=== PATIENT | female | born 1930 | race Caucasian/White ===

== ENCOUNTER 2018-05-20 12:29 | Inpatient (IN) ==
[2018-05-20 13:12] LABS: Basophils # 0.1 K/mm3 (0-0.2); Basophils % 0.5 % (0.1-2.0); Eosinophils # 0.2 K/mm3 (0.0-0.4); Eosinophils % 1.8 % (0.1-12.0); Hematocrit 43.5 % (37.0-47.0); Hemoglobin 14.7 g/dL (12.2-16.2); Lymphocytes # 2.1 K/mm3 (0.7-4.5); Lymphocytes % 17.4 % (10-50); Mean Corpuscular HGB Conc 33.8 g/dL (31.8-35.4); Mean Corpuscular Hemoglobin 31.1 pg (27.0-31.2); Mean Corpuscular Volume 91.9 fl (81-99); Mean Platelet Volume 9.9 fl (7.4-10.4); Monocytes # 0.8 K/mm3 (0.1-1.0); Monocytes % 6.5 % (1.7-9.3); Neutrophils # 8.7 K/mm3 (1.8-7.8); Neutrophils % 73.7 % (37.0-80.0); Platelet Count 224 K/mm3 (142-424); Red Blood Count 4.73 M/mm3 (4.20-5.40); Red Cell Distribution Width 21.2 % (11.5-17.5); White Blood Count 11.8 K/mm3 (4.8-10.8)
[2018-05-20 13:33] LABS: Albumin Level 3.9 gm/dL (3.4-5.0); Anion Gap 23.6 mEq/L (5-15); Bilirubin,Total 1.4 mg/dL (0.2-1.0); Calcium 9.3 mg/dL (8.5-10.1); Digoxin 0.6 ng/mL (1.15-2.56); Globulin 3.8 gm/dl (1.3-3.2); Total Protein,Serum 7.7 gm/dL (6.4-8.2)
[2018-05-20 13:34] LABS: Microscopic, Urine URINE MICROSCOPIC (MICROSCOPIC)
[2018-05-20 13:36] LABS: Potassium 2.6 mmoL/L (3.5-5.1)
[2018-05-20 13:42] LABS: Appearance,Urine CLEAR (Clear); Bilirubin,Urine Negative (Negative); Blood, Urine 3+ (Negative); Color,Urine YELLOW (Yellow); Glucose,Urine (UA) Negative (Negative); Ketones,Urine Negative (Negative); Leukocyte Esterase,Urine Negative (Negative); Protein,Urine TRACE (Negative); Specific Gravity, Urine 1.015 (1.005-1.030); Urobilinogen,Urine 0.2 EU/dl (0.2)
[2018-05-20 13:53] LABS: Bacteria,Urine 1+ /lpf
--- NOTE | 2018-05-20 16:17 | Emergency Department Note ---
ED Disposition Clinical Impression: Dehydration, Urinary tract infection Disposition: Admitted as Observation Condition on Discharge: Fair Time of Disposition: 16:23 - Critical Care Critical Care Time: No Attestation: On 05/20/18, the high probability of a clinically significant, sudden or life threatening deterioration of the following system(s) required my full and direct attention, intervention and personal management. The time I documented below is in addition to time spent performing reported procedures but includes the following listed in this critical care notation. Medical Decision Making - Medical Records Medical records reviewed: Yes: I reviewed the patient's medical records. - Ha Inquiry Pt receiving controlled substance: No Ha was queried for this patient: No Vital Signs: 05/20/18 12:30 05/20/18 13:31 05/20/18 15:15 Temperature 97.5 F L Temperature Source Oral Pulse Rate Pulse Rate [Left Radial] 48 L 63 61 Respiratory Rate 16 20 18 Blood Pressure Blood Pressure [Right Arm] 123/75 110/64 95/51 L Blood Pressure Mean [Right Arm] 91 79 65 Blood Pressure Source Blood Pressure Source [Right Arm] Automatic Cuff Automatic Cuff Automatic Cuff Blood Pressure Position Blood Pressure Position [Right Arm] Sitting Sitting Supine 02 Sat by Pulse Oximetry 96 93 L 96 Oxygen Delivery Method Room Air Room Air Room Air 05/20/18 16:53 05/20/18 17:11 Temperature 98 F Temperature Source Oral Pulse Rate 58 L Pulse Rate [Left Radial] 56 L Respiratory Rate 18 18 Blood Pressure 125/64 Blood Pressure [Right Arm] 116/56 L Blood Pressure Mean [Right Arm] 76 Blood Pressure Source Automatic Cuff Blood Pressure Source [Right Arm] Automatic Cuff Blood Pressure Position Sitting Blood Pressure Position [Right Arm] Supine 02 Sat by Pulse Oximetry 98 Oxygen Delivery Method Room Air Room Air - Lab Data Lab Results 05/20/18 12:55: WBC 11.8 H, RBC 4.73, Hgb 14.7, Hct 43.5, MCV 91.9, MCH 31.1, M CHC 33.8, RDW 21.2 H, Plt Count 224, MPV 9.9, Neut % (Auto) 73.7, Lymph % (Auto) 17.4, [place] % (Auto) 6.5, Eos % (Auto) 1.8, Baso % (Auto) 0.5, Neut # (Auto) 8.7 H, Lymph # (Auto) 2.1, [place] # (Auto) 0.8, Eos # (Auto) 0.2, Baso # (Auto) 0.1 05/20/18 12:55: Sodium 143, Potassium 2.6 L*, Chloride 107, Carbon Dioxide 15 L, Anion Gap 23.6 H, BUN 85 H, Creatinine 2.47 H, Estimated Creat Clear 22, Estimated GFR 19 L*, Est GFR ( Amer) 22 L, Glucose 108 H, Calcium 9.3, Total Bilirubin 1.4 H, AST 31, ALT 37, Alkaline Phosphatase 99, Total Protein 7.7, Albumin 3.9, Globulin 3.8 H, Albumin/Globulin Ratio 1.0 L, Digoxin 0.60 L 05/20/18 12:55: Lactate 1.5 05/20/18 12:55: Troponin I 0.11 H 05/20/18 13:20: Urine Color Yellow, Urine Appearance Clear, Urine pH 6.0, Ur Specific [place] 1.015, Urine Protein Trace, Urine Glucose (UA) Negative, Urine Ketones Negative, Urine Blood 3+, Urine Nitrate Negative, Urine Bilirubin Negative, Urine Urobilinogen 0.2, Ur Leukocyte Esterase Negative, Urine RBC 10- 20, Urine WBC 3-5, Ur Squamous Epith Cells 3-5, Urine Bacteria 1+ 05/20/18 16:07: Troponin I 0.12 H Result diagrams: 05/21/18 06:40 05/23/18 06:40 Orders (Tests/Meds): ED MEDICATIONS Discontinued Medications Generic Name Dose Route Start Last Admin Trade Name Freq PRN Reason Stop Dose Admin Acetaminophen 650 mg 05/20/18 16:59 Acetaminophen 325mg Tab PO 06/19/18 16:58 Q4HP PRN As Needed for Fever or Pain Atenolol 25 mg 05/21/18 09:00 05/22/18 08:00 Tenormin 25mg Tablet PO 06/20/18 08:59 25 mg DAILY BARBARA Administration Atenolol 50 mg 05/22/18 09:00 05/22/18 08:50 Tenormin 25mg Tablet PO 06/21/18 08:59 25 mg DAILY BARBARA Administration Atenolol 50 mg 05/23/18 09:00 05/23/18 08:25 Tenormin 50mg Tablet PO 06/22/18 08:59 50 mg DAILY BARBARA Administration Digoxin 125 mcg 05/21/18 09:00 Digoxin 0.125mg Tablet PO 06/20/18 08:59 DAILY BARBARA Digoxin 125 mcg 05/22/18 10:45 05/23/18 08:25 Digoxin 0.125mg Tablet PO 06/21/18 10:44 125 mcg DAILY BARBARA Administration Sodium Chloride 1,000 mls @ 500 mls/hr 05/20/18 15:15 05/20/18 15:38 Sod Chlor 0.9% 1000ml Bag IV 05/20/18 17:14 500 mls/hr .Q2H BARBARA Administration Potassium Chloride/Water 100 mls @ 50 mls/hr 05/20/18 15:30 05/20/18 15:38 Potassium Chloride 20meq/100ml Ivpb IV 05/20/18 19:29 50 mls/hr Q2H BARBARA Administration Ceftriaxone Sodium 1 gm/ 50 mls @ 100 mls/hr 05/20/18 15:30 05/20/18 16:41 Sodium Chloride IV 06/03/18 15:29 100 mls/hr Q24H BARBARA Administration Protocol Ceftriaxone Sodium 1 gm/ 50 mls @ 100 mls/hr 05/21/18 15:00 05/22/18 16:47 Sodium Chloride IV 06/03/18 14:59 100 mls/hr Q24H BARBARA Administration Protocol Sodium Chloride 1,000 mls @ 500 mls/hr 05/20/18 16:59 05/20/18 18:02 Sod Chlor 0.9% 1000ml Bag IV 05/20/18 17:14 Not Given .Q2H BARBARA Potassium Chloride/Water 100 mls @ 50 mls/hr 05/20/18 17:30 05/20/18 18:31 Potassium Chloride 20meq/100ml Ivpb IV 05/20/18 19:29 50 mls/hr Q2H BARBARA Administration Sodium Chloride 1,000 mls @ 75 mls/hr 05/20/18 16:59 05/22/18 08:00 Sod Chlor 0.9% 1000ml Bag IV 06/19/18 16:58 75 mls/hr .[id number] BARBARA Administration Potassium Chloride/Water 100 mls @ 50 mls/hr 05/21/18 11:15 05/21/18 16:17 Potassium Chloride 20meq/100ml Ivpb IV 05/21/18 17:14 50 mls/hr Q2H BARBARA Administration Potassium Chloride/Sodium Chloride 1,000 mls @ 50 mls/hr 05/22/18 19:00 05/22/18 20:04 Kcl 40 Meq-Ns 1,000ml Iv Soln IV 06/21/18 18:59 50 mls/hr .Q20H BARBARA Administration Ondansetron HCl 4 mg 05/20/18 16:59 Zofran 4mg/2ml Vial IV 06/19/18 16:58 Q8HP PRN Nausea Potassium Chloride 20 meq 05/21/18 09:00 05/23/18 08:27 Klor-Con 20meq Tablet PO 06/20/18 08:59 20 meq BID BARBARA Administration Rivaroxaban 15 mg 05/21/18 09:00 05/21/18 08:49 Xarelto 15mg Tablet PO 06/20/18 08:59 15 mg DAILY BARBARA Administration Rivaroxaban 15 mg 05/22/18 21:00 05/22/18 20:09 Xarelto 15mg Tablet PO 06/21/18 20:59 15 mg HS BARBARA Administration Sodium Chloride 10 ml 05/20/18 12:36 Saline Flush 10ml Syringe IV 06/19/18 12:35 NEEDED PRN Maintain IV Site Sodium Chloride 10 ml 05/20/18 16:59 Saline Flush 10ml Syringe IV 06/19/18 12:35 NEEDED PRN Maintain IV Site ORDERS Category Date Time Status Urinalysis and Microscopic Stat Lab 05/20/18 13:20 Ordered Blood Culture Stat Micro 05/20/18 12:55 Ordered ECG Request by Dr/Nse Stat Y 05/20/18 12:35 Stop Req General Adult HPI - General Chief complaint: Weakness Stated complaint: weakness Time Seen by Provider: 05/20/18 12:50 Mode of Arrival: Ambulatory Limitations: No Limitations Description of Symptoms (Recalled from ER Triage Doc. by RN): to ed per squad with c/o generalized weakness, increasing confusion, pt dx with UTI thursday taking keflex. daughter reports pt not improving. pt alert, confused to time. - History of Present Illness HPI narrative: Diagnosed with UTI, had non-specific symptoms of weakness Onset (ago): week(s) (one) Severity: moderate - Related Data Home Medications Medication Instructions Recorded Confirmed RX: Atenolol [Atenolol 50mg Tab] 50 mg PO DAILY 12/20/17 05/20/18 RX: Digoxin [Digoxin 0.125mg 125 mcg PO DAILY 12/20/17 05/20/18 Tablet] RX: Rivaroxaban [Xarelto 15mg 15 mg PO DAILY 12/20/17 05/20/18 tablet] Previous Rx's Medication Instructions Recorded RX: Furosemide [Furosemide 20mg 20 mg PO DAILYP PRN 30 Days #30 tab 05/23/18 Tab] RX: Potassium Chloride [Klor-con 20 meq PO BID #60 tablet 05/23/18 20 mEq tablet] Allergies Allergy/AdvReac Type Severity Reaction Status Date / Time ciprofloxacin [CIPROFLOXACIN] Allergy Unknown DAMAGED Verified 02/05/18 09:07 NERVES IN ARMS [facility] History - Hepatitis A Screen Drug use history?: No High risk sexual behaviors?: No History of sexually transmitted infection?: No Currently employed?: No Childcare worker?: No Do you have indoor plumbing?: No Do you have electricity?: Yes Attestation statement:: This patient has been screened for Hepatitis A risk factors. Medical History: Reports:: Atrial Fibrillation, Hypertension, Kidney Stones Denies:: Seizures Other Medical History: Reports: Arthritis, Cataracts. Denies: Blood Transfusion Reaction Comment: [employer] FILTER 06-12-2006. CATARACTS SX B/L. VARICOSE VEIN STRIPPED Laterality Cases: Left: Carpal Tunnel Release, Total Hip Replacement, Bilateral: Arthroscopy Hip Other Surgeries: Yes: Appendectomy, Cholecystectomy, Hernia Repair, Hysterectomy-Total Amputation: No Fractures: No - Social History Smoking Status: Never smoker Alcohol Intake: never Alcohol Intake Frequency:: holidays/special occasions only Substance Use Type: denies use Occupational Status: retired Housing: house Household Members: family - Psychiatric History Expresses thoughts of harming self/others: None Suicide Plan Description: No Plan Family Hx:: Cancer ROS Obtained: Yes All systems reviewed & no additional complaints - Constitutional Constitutional: Reports system reviewed and no additional complaints, except as docu, Reports fatigue, Reports malaise, Reports weakness - Eyes Eyes: Denies blurry vision - ENT Ears, Nose, Mouth, and Throat: Reports system reviewed and no additional complaints, except as docu, Reports throat swelling - Respiratory Respiratory: Yes chest congestion, No cough, Yes dyspnea on exertion - Gastrointestinal Gastrointestingal: Reports: system reviewed and no additional complaints, except as docu. Denies: diarrhea, black, tarry stools, vomiting - Genitourinary Female Genitourinary: Reports system reviewed and no additional complaints, except as docu, Denies dysuria, Denies hematuria - Integumentary/Breasts Skin/Breast: Reports system reviewed and no additional complaints, except as docu, Denies rash, Denies skin swelling - Hematologic/Lymphatic Henatologic/Lymphatic: Denies easy bruising Physical Exam - General General appearance: in no apparent distress, lethargic - Head Head exam: atraumatic, normocephalic - Eye Eye exam: Present: normal appearance - ENT ENT exam: Present: normal exam, normal oropharynx - Neck Neck exam: Present: normal inspection - Chest Chest inspection: Present: normal inspection - Respiratory Respiratory exam: Present: normal lung sounds bilaterally. Absent: respiratory distress, wheezes - Cardiovascular Cardiovascular exam: Present: bradycardia, irregular rhythm - Abdominal Exam Abdominal exam: Absent: distention, tenderness - Extremities Exam Extremities exam: Present: full ROM. Absent: tenderness - Neurological Exam Neurological exam: Present: alert. Absent: oriented X3 - Skin Skin exam: Absent: rash, cyanosis
--- NOTE | 2018-05-20 17:21 | History & Physical Report ---
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 Patient had been seen in the office approximately 1 week prior with same complaint and was diagnosed with a urinary tract infection. Patient was prescribed Keflex. At that time labs were also indicative of mild acute kidney injury on chronic renal disease. Over the last week the patient's course has waxed and waned. Apparently [place] Claritza and day went fairly well according to her daughter but since that time she has gradually declined. P.o. intake has been poor. The patient has chronic diarrhea since having cholecystectomy. The patient denies pain. She presented to the emergency department and workup revealed worsening acute kidney injury, mild bradycardia, hypokalemia. Patient has been admitted for IV fluid replacement, potassium replacement and monitoring of her pulse rate. [facility] History I have reviewed the patient's past medical history: Yes Medical History: Reports:: Atrial Fibrillation, Hypertension, Kidney Stones Denies:: Cancer, Diabetes Mellitus Type 1, Diabetes Mellitus Type 2, Internal Pacemaker, MRSA, Seizures Other Medical History: Reports: Arthritis, Cataracts. Denies: Blood Transfusion Reaction Laterality Cases: Left: Carpal Tunnel Release, Total Hip Replacement, Bilateral: Arthroscopy Hip Other Surgeries: Yes: Appendectomy, Cholecystectomy, Hernia Repair, Hy sterectomy-Total. No: Pacemaker Amputation: No Fractures: No - *Social History Smoking Status: Never smoker Alcohol Intake: never Alcohol Intake Frequency:: holidays/special occasions only Substance Use Type: denies use Occupational Status: retired Housing: house Household Members: family - Psychiatric History Expresses thoughts of harming self/others: None Suicide Plan Description: No Plan *Family Hx:: Cancer Review of Systems - Review of Systems Review of systems:: pertinent systems reviewed and negative unless documented below - Constitutional Reports lack of energy, Reports malaise, Denies body ache(s), Denies chills - Eyes Denies change in vision - ENT Reports dry mouth, Denies difficulty swallowing - *Cardiovascular Reports irregular heart rhythm, Denies chest pain, Denies chest pain at rest, Denies chest pain with activity, Denies shortness of breath, Denies shortness of breath with activity, Denies generalized swelling - *Respiratory Denies chest congestion, Denies cough, Denies shortness of breath, Denies coughing up blood - *Gastrointestinal Denies abdominal pain - Integumentary/Breasts Denies acne, Denies hair loss, Denies change in hair - *Neurologic Reports weakness - Endocrine Denies cold intolerance, Denies flushing Meds Home Medications Medication Instructions Recorded Confirmed Type Atenolol [Atenolol 50mg Tab] 50 mg PO DAILY 12/20/17 05/20/18 History Digoxin [Digoxin 0.125mg Tablet] 125 mcg PO DAILY 12/20/17 05/20/18 History Rivaroxaban [Xarelto 15mg tablet] 15 mg PO DAILY 12/20/17 05/20/18 History furosemide 20 mg tablet 20 mg PO DAILY 30 Days #30 tab 01/19/18 05/20/18 History potassium chloride ER 10 mEq 10 meq PO BID 90 Days #180 tab 01/19/18 05/20/18 History tablet,extended release(part/cryst) Ibuprofen [Advil 100mg Tab] 200 mg PO NEEDED PRN 01/22/18 05/20/18 History Allergies Allergy/AdvReac Type Severity Reaction Status Date / Time ciprofloxacin [CIPROFLOXACIN] Allergy Unknown DAMAGED Verified 02/05/18 09:07 NERVES IN ARMS Exam Vital signs and Labs for Last 24 Hours: Temp Pulse Resp BP Pulse Ox 98 F 58 L 18 125/64 98 05/20/18 17:11 05/20/18 17:11 05/20/18 17:11 05/20/18 17:11 05/20/18 16:53 Laboratory Results - last 24 hr 05/20/18 12:55: WBC 11.8 H, RBC 4.73, Hgb 14.7, Hct 43.5, MCV 91.9, MCH 31.1, MCHC 33.8, RDW 21.2 H, Plt Count 224, MPV 9.9, Neut % (Auto) 73.7, Lymph % (Auto) 17.4, [place] % (Auto) 6.5, Eos % (Auto) 1.8, Baso % (Auto) 0.5, Neut # (Auto) 8.7 H, Lymph # (Auto) 2.1, [place] # (Auto) 0.8, Eos # (Auto) 0.2, Baso # (Auto) 0.1 05/20/18 12:55: Sodium 143, Potassium 2.6 L*, Chloride 107, Carbon Dioxide 15 L, Anion Gap 23.6 H, BUN 85 H, Creatinine 2.47 H, Estimated Creat Clear 22, Estimated GFR 19 L*, Est GFR ( Amer) 22 L, Glucose 108 H, Calcium 9.3, Total Bilirubin 1.4 H, AST 31, ALT 37, Alkaline Phosphatase 99, Total Protein 7.7, Albumin 3.9, Globulin 3.8 H, Albumin/Globulin Ratio 1.0 L, Digoxin 0.60 L 05/20/18 12:55: Lactate 1.5 05/20/18 12:55: Troponin I 0.11 H 05/20/18 13:20: Urine Color Yellow, Urine Appearance Clear, Urine pH 6.0, Ur Specific [place] 1.015, Urine Protein Trace, Urine Glucose (UA) Negative, Urine Ketones Negative, Urine Blood 3+, Urine Nitrate Negative, Urine Bilirubin Negative, Urine Urobilinogen 0.2, Ur Leukocyte Esterase Negative, Urine RBC 10- 20, Urine WBC 3-5, Ur Squamous Epith Cells 3-5, Urine Bacteria 1+ 05/20/18 16:07: Troponin I 0.12 H I & O for Last 24 hours: Intake & Output 05/18/18 05/19/18 05/20/18 05/21/18 11:59 11:59 11:59 11:59 Weight 185 lb Narrative: Patient appears weak but in no distress. Oropharynx is dry, lips are dry. Neck is without jugular venous distention. Lungs are clear to auscultation bilaterally. Heart has a regular rate and rhythm. Abdomen is soft and nontender. Neurologic exam is significant only for some mild confusion, otherwise there is no deficit. Extremity exam reveals severe varicosities of t he lower extremities with brawny skin color changes of the lower legs to the ankles. She does not have any edema. Assessment and Plan (1) Acute kidney injury Current visit: Yes Status: Acute Category: Medical Code(s): N17.9 - Acute kidney failure, unspecified (2) Dehydration Current visit: Yes Status: Acute Category: Medical Code(s): E86.0 - Dehydration (3) Urinary tract infection Current visit: Yes Status: Suspected Category: Medical Code(s): N39.0 - Urinary tract infection, site not specified (4) Chronic atrial fibrillation Current visit: No Status: Chronic Category: Medical Code(s): I48.2 - Chronic atrial fibrillation - Assessment and plan all Dx Assessment and Plan for all problems:: 1. Patient will be rehydrated with IV fluids 2. Potassium will be replaced intravenously 3. Digoxin and atenolol will be held at this time and pulse rate monitored. 4. Repeat labs in a.m.
--- NOTE | 2018-05-21 06:43 | Progress Note ---
Internal Medicine - PN: Subj *Date: 05/21/18 *Time: 06:42 Interval history: Patient feels a little bit stronger this morning. She feels like she is thinking a little more clearly as well. She denies pain. She did require assistance from the nurse overnight for ambulating Exam Vital signs and Labs for Last 24 Hours: Temp Pulse Resp BP Pulse Ox 97.5 F L 70 16 116/65 93 L 05/21/18 04:00 05/21/18 04:00 05/21/18 04:00 05/21/18 04:00 05/21/18 04:00 Laboratory Results - last 24 hr 05/20/18 12:55: WBC 11.8 H, RBC 4.73, Hgb 14.7, Hct 43.5, MCV 91.9, MCH 31.1, MCHC 33.8, RDW 21.2 H, Plt Count 224, MPV 9.9, Neut % (Auto) 73.7, Lymph % (Auto) 17.4, [place] % (Auto) 6.5, Eos % (Auto) 1.8, Baso % (Auto) 0.5, Neut # (Auto) 8.7 H, Lymph # (Auto) 2.1, [place] # (Auto) 0.8, Eos # (Auto) 0.2, Baso # (Auto) 0.1 05/20/18 12:55: Sodium 143, Potassium 2.6 L*, Chloride 107, Carbon Dioxide 15 L, Anion Gap 23.6 H, BUN 85 H, Creatinine 2.47 H, Estimated Creat Clear 22, Estimated GFR 19 L*, Est GFR ( Amer) 22 L, Glucose 108 H, Calcium 9.3, Total Bilirubin 1.4 H, AST 31, ALT 37, Alkaline Phosphatase 99, Total Protein 7.7, Albumin 3.9, Globulin 3.8 H, Albumin/Globulin Ratio 1.0 L, Digoxin 0.60 L 05/20/18 12:55: Lactate 1.5 05/20/18 12:55: Troponin I 0.11 H 05/20/18 13:20: Urine Color Yellow, Urine Appearance Clear, Urine pH 6.0, Ur Specific [place] 1.015, Urine Protein Trace, Urine Glucose (UA) Negative, Urine Ketones Negative, Urine Blood 3+, Urine Nitrate Negative, Urine Bilirubin Negative, Urine Urobilinogen 0.2, Ur Leukocyte Esterase Negative, Urine RBC 10- 20, Urine WBC 3-5, Ur Squamous Epith Cells 3-5, Urine Bacteria 1+ 05/20/18 16:07: Troponin I 0.12 H I & O for Last 24 hours: Intake & Output 05/18/18 05/19/18 05/20/18 05/21/18 11:59 11:59 11:59 11:59 Intake Total 1734 / 1734 Output Total 300 / 300 Balance 1434 / 1434 Weight 181 lb 1.509 oz Narrative: Her color has improved. Mentation still seems slower than baseline. Lungs are clear. Heart has a regular rate and rhythm Assessment and Plan (1) Acute kidney injury Current visit: Yes Status: Acute Category: Medical Code(s): N17.9 - Acute kidney failure, unspecified (2) Dehydration Current visit: Yes Status: Acute Category: Medical Code(s): E86.0 - Dehydration (3) Urinary tract infection Current visit: Yes Status: Suspected Category: Medical Code(s): N39.0 - Urinary tract infection, site not specified (4) Chronic atrial fibrillation Current visit: No Status: Chronic Category: Medical Code(s): I48.2 - Chronic atrial fibrillation - Assessment and plan all Dx Assessment and Plan for all problems:: 1. Await BMP this morning to assess renal function and potassium 2. Restart atenolol at 25 mg
[2018-05-21 07:07] LABS: Basophils # 0.1 K/mm3 (0-0.2); Basophils % 0.4 % (0.1-2.0); Eosinophils # 0.2 K/mm3 (0.0-0.4); Eosinophils % 1.6 % (0.1-12.0); Hematocrit 42.9 % (37.0-47.0); Hemoglobin 14.4 g/dL (12.2-16.2); Lymphocytes # 2.1 K/mm3 (0.7-4.5); Mean Corpuscular HGB Conc 33.6 g/dL (31.8-35.4); Mean Corpuscular Volume 92.1 fl (81-99); Mean Platelet Volume 9.8 fl (7.4-10.4); Monocytes # 0.8 K/mm3 (0.1-1.0); Monocytes % 6.6 % (1.7-9.3); Neutrophils # 9.2 K/mm3 (1.8-7.8); Neutrophils % 74.5 % (37.0-80.0); Platelet Count 183 K/mm3 (142-424); Red Blood Count 4.66 M/mm3 (4.20-5.40); Red Cell Distribution Width 21.2 % (11.5-17.5); White Blood Count 12.4 K/mm3 (4.8-10.8)
--- NOTE | 2018-05-21 07:41 | Pharmacy Consult Notes ---
[facility] Pharmacy VTE Monitoring - Patient Demographics Admission date: 05/20/18 Report Date: 05/21/18 Time: 07:41 Allergies/Adverse Reactions: Patient Allergies ciprofloxacin [CIPROFLOXACIN] Allergy (Unknown, Verified 02/05/18 09:07) DAMAGED NERVES IN ARMS Height: 1.65 m Weight: 82.143 kg Patient Problems: Current Active Problems Dehydration (Acute) Acute kidney injury (Acute) - VTE Risk Labs: VTE Related Lab Results Hgb 14.4 g/dL (12.2-16.2) 05/21/18 06:40 Hct 42.9 % (37.0-47.0) 05/21/18 06:40 Plt Count 183 K/mm3 (142-424) 05/21/18 06:40 BUN 85 mg/dL (7-18) H 05/20/18 12:55 Creatinine 2.47 mg/dL (0.55-1.02) H 05/20/18 12:55 Estimated Creat Clear 22 mL/min (50-200) 05/20/18 12:55 VTE Risk Level: Moderate Risk - Prophylaxis VTE Prophylaxis Ordered?: Yes Types of VTE Prophylaxis: TEDS Knee High, Pharmacological Location of Applied Device: Bilateral Lower Extremeties Pharmacologic Type: Other (XARELTO) - VTE Diagnosis Confirmed Treatment or plan recommended: Continue Current Treatment
[2018-05-21 10:13] LABS: Anion Gap 22.7 mEq/L (5-15)
[2018-05-21 10:17] LABS: Potassium 2.7 mmoL/L (3.5-5.1)
[2018-05-21 10:22] LABS: Calcium 8.2 mg/dL (8.5-10.1)
--- NOTE | 2018-05-22 07:43 | Progress Note ---
Internal Medicine - PN: Subj *Date: 05/22/18 *Time: 07:41 Interval history: Patient feels better. She feels stronger. Ambulating well. Family confirms this. Exam Vital signs and Labs for Last 24 Hours: Temp Pulse Resp BP Pulse Ox 97.9 F 80 18 129/71 98 05/22/18 03:44 05/22/18 04:00 05/22/18 03:44 05/22/18 03:44 05/22/18 03:44 Laboratory Results - last 24 hr 05/21/18 08:57: Sodium 141, Potassium 2.7 L*, Chloride 111 H, Carbon Dioxide 10 L D, Anion Gap 22.7 H, BUN 78 H, Creatinine 1.93 H D, Estimated Creat Clear 27, Estimated GFR 25 L, Est GFR ( Amer) 30 L D, Glucose 98, Calcium 8.2 L D 05/21/18 08:57: Magnesium 1.8 I & O for Last 24 hours: Intake & Output 05/19/18 05/20/18 05/21/18 05/22/18 11:59 11:59 11:59 11:59 Intake Total 1973 / 1973 Output Total 300 / 300 Balance 1674 / 1674 2058 Weight 181 lb 1.509 oz 189 lb - Constitutional no acute distress - *Routine Cardiovascular Exam Present: irregularly irregular Assessment and Plan (1) Acute kidney injury Current visit: Yes Status: Acute Category: Medical Code(s): N17.9 - Acute kidney failure, unspecified (2) Dehydration Current visit: Yes Status: Acute Category: Medical Code(s): E86.0 - Dehydr ation (3) Urinary tract infection Current visit: Yes Status: Suspected Category: Medical Code(s): N39.0 - Urinary tract infection, site not specified (4) Chronic atrial fibrillation Current visit: No Status: Chronic Category: Medical Code(s): I48.2 - Chronic atrial fibrillation - Assessment and plan all Dx Assessment and Plan for all problems:: 1. Await bmp this a.m. 2. Increase Atenolol
[2018-05-22 08:23] LABS: Anion Gap 20.2 mEq/L (5-15); Calcium 7.6 mg/dL (8.5-10.1); Potassium 3.2 mmoL/L (3.5-5.1)
[2018-05-23 07:08] LABS: Anion Gap 18.4 mEq/L (5-15); Calcium 7.3 mg/dL (8.5-10.1); Potassium 3.4 mmoL/L (3.5-5.1)
--- NOTE | 2018-05-23 07:41 | Discharge Summary ---
General - General Admission date:: 05/20/18 Discharge date: 05/23/18 HPI HPI: 87-year-old female with history of atrial fibrillation and chronic venous insufficiency from varicose veins presented to the emergency department with generalized weakness. Patient had been seen in the office approximately 1 week prior with same complaint and was diagnosed with a urinary tract infection. Patient was prescribed Keflex. At that time labs were also indicative of mild acute kidney injury on chronic renal disease. Over the last week the patient's course has waxed and waned. Apparently Huong Jerry and Huong caraballo went fairly well according to her daughter but since that time she has gradually declined. P.o. intake has been poor. The patient has chronic diarrhea since having cholecystectomy. The patient denies pain. She presented to the [facility] department and workup revealed worsening acute kidney injury, mild bradycardia, hypokalemia. Patient has been admitted for IV fluid replacement, potassium replacement and monitoring of her pulse rate. Hospital Course Hospital Course: Patient was admitted and placed on IV potassium via runs and oral potassium. After 72 hours her potassium orestes to 3.4. Weakness improved. Mentation improved. Patient was able to ambulate with her walker. Patient was severely dehydrated on admission. She was given NS continuously during her hospitalization. Her Creatinine was 2.6 on admission and at discharge was 1.2. Patient had mild confusion on admission but this resolved with rehydration. Patient was discharged on 05/13 and will follow up in my office on 05/28. Objective Vital signs: Temp Pulse Resp BP Pulse Ox 98.6 F 90 17 110/60 98 05/23/18 04:00 05/23/18 04:00 05/23/18 04:00 05/23/18 04:00 05/23/18 04:00 no acute distress - *Routine Respiratory Exam Present: CTA bilaterally - *Routine Cardiovascular Exam Present: RRR, Normal S1, Normal S2 - *Routine Abdominal Exam Present: normoactive bowel sounds. Absent: tenderness Results Labs on day of discharge: Labs from last 24 hours 05/23/18 05/22/18 06:40 08:10 Sodium 144 145 Potassium 3.4 L 3.2 L Chloride 117 H 114 H Carbon Dioxide 12 L 14 L D Anion Gap 18.4 H 20.2 H BUN 36 H D 53 H D Creatinine 1.27 H 1.52 H D Estimated Creat Clear 44 36 Estimated GFR 40 L 32 L Est GFR ( Amer) 48 L D 39 L D Glucose 94 117 H Calcium 7.3 L 7.6 L Preliminary micro results at discharge 05/20/18 12:55 Blood Culture - Preliminary Blood NO GROWTH AFTER 48 HOURS 05/20/18 12:55 Blood Culture - Preliminary Blood NO GROWTH AFTER 48 HOURS DS: Diagnosis - Discharge Diagnosis (1) Acute kidney injury Status: Acute (2) Dehydration Status: Acute (3) Urinary tract infection Status: Ruled-out (4) Chronic atrial fibrillation Status: Chronic Discharge Plan - Patient Discharge Instructions ACTIVITY: Continue current activity DIET: continue same diet Patient Instructions: DI for Dehydration -- Adult - Follow up Plan Follow up with: Darryl Shirley MD [Primary Care Provider] - 05/28/18 1:30 pm Disposition: Home, Self-Correction Medications: Home Medications Medication Instructions Recorded Confirmed Type Atenolol [Atenolol 50mg Tab] 50 mg PO DAILY 12/20/17 05/20/18 History Digoxin [Digoxin 0.125mg Tablet] 125 mcg PO DAILY 12/20/17 05/20/18 History Rivaroxaban [Xarelto 15mg tablet] 15 mg PO DAILY 12/20/17 05/20/18 History furosemide 20 mg tablet 20 mg PO DAILY 30 Days #30 tab 01/19/18 05/20/18 History potassium chloride ER 10 mEq 10 meq PO BID 90 Days #180 tab 01/19/18 05/20/18 History tablet,extended release(part/cryst) Potassium Chloride [Klor-con 20 20 meq PO BID #60 tablet 05/23/18 Rx mEq tablet] Prescriptions/Medication Reconciliation: New Potassium Chloride [Klor-con 20 mEq tablet] 20 meq PO BID #60 tablet Continue Digoxin [Digoxin 0.125mg Tablet] 125 mcg PO DAILY Atenolol [Atenolol 50mg Tab] 50 mg PO DAILY Rivaroxaban [Xarelto 15mg tablet] 15 mg PO DAILY Changed Furosemide [Furosemide 20mg Tab] 20 mg PO DAILYP PRN 30 Days #30 tab PRN Reason: swelling Discontinued potassium chloride ER 10 mEq tablet,extended release(part/cryst) 10 meq PO BID 90 Days #180 tab
== END 2018-05-23 10:20 | disposition home or self-care (01) | DRG 641 ==
LOC: ER 12:29 → 2ND 12:29
PROVIDERS: ADMIT Family Medicine; ATTEND Family Medicine